=== PATIENT | female | born 1990 | race African-American/Black ===

== ENCOUNTER 2023-07-01 11:24 | Emergency (ER) | payer BC ==
[2023-07-01 13:35] LABS: SARS-CoV-2 NAA Rapid Test Not Detected (NotDetected)
== END 2023-07-01 12:15 | disposition home or self-care (01) ==
LOC: ERS 11:24
DX: H10.9 Unspecified conjunctivitis (principal); Z20.822 Contact with and (suspected) exposure to COVID-19
CPT/HCPCS: 99283; U0002